=== PATIENT | female | born 1985 | race American Indian/Alaskan Native ===

== ENCOUNTER 2018-04-14 00:05 | Emergency (ER) | payer MEDICAID ==
[2018-04-14 04:26] VITALS: BP 120/80
== END 2018-04-14 00:06 | disposition left against medical advice (07) ==
LOC: ED 00:05
DX: N93.9 Abnormal uterine and vaginal bleeding, unspecified (principal); Z53.21 Procedure and treatment not carried out due to patient leaving prior to being seen by health care provider

== ENCOUNTER 2018-04-14 17:46 | Emergency (ER) | payer MEDICAID ==
[2018-04-14 17:53] VITALS: BP 114/71
--- NOTE | 2018-04-14 20:29 | Emergency Department Report ---
ED Female HPI - General Chief complaint: Vaginal Bleeding Stated complaint: IRREGULAR MENASTRATION Time Seen by Provider: 04/14/18 20:28 Source: patient Mode of arrival: Ambulatory Limitations: No Limitations - History of Present Illness Initial comments: This is a 32-year-old female nontoxic well in appearance with no signs of distress presented to the ER with intermittent vaginal bleeding 1 month. Patient stated that her [employer] removed her IUD and ever since then develops this vaginal bleeding. Patient stated that he has stopped yesterday when she came into the ED and left before being seen by a provider. Patient currently denies any vaginal bleeding. Patient denies any abdominal pain, chest pain, pelvic pain, shortness of breath, headache, stiff neck, numbness, tingling, fever or chills. Patient denies any allergies or significant past medical history. Patient denies any urinary symptoms or vaginal discharge. MD Complaint: vaginal bleeding -: month(s) (1) Severity scale (0 -10): 0 Improves with: none Worsens with: none Associated Symptoms: vaginal bleeding. denies: vaginal discharge, abdominal pain, nausea/vomiting, fever/chills, headaches, loss of appetite, dysuria, hematuria, rash, seizure, shortness of breath, syncope, weakness - Related Data Sexually active: No Allergies Allergy/AdvReac Type Severity Reaction Status Date / Time No Known Allergies Allergy Unverified 04/14/18 17:53 ED Review of Systems ROS: Stated complaint: IRREGULAR MENASTRATION Other details as noted in HPI Constitutional: denies: chills, fever Eyes: denies: eye pain, eye discharge, vision change ENT: denies: ear pain, throat pain Respiratory: denies: cough, shortness of breath, wheezing Cardiovascular: denies: chest pain, palpitations Endocrine: no symptoms reported Gastrointestinal: denies: abdominal pain, nausea, diarrhea Genitourinary: abnormal menses. denies: urgency, dysuria, discharge Musculoskeletal: denies: back pain, joint swelling, arthralgia Skin: denies: rash, lesions Neurological: denies: headache, weakness, paresthesias Psychiatric: denies: anxiety, depression Hematological/Lymphatic: denies: easy bleeding, easy bruising ED Past Medical Hx - Past Medical History Previous Medical History?: No - Surgical History Past Surgical History?: No - Social History Smoking Status: Never Smoker Substance Use Type: None ED Physical Exam - General Limitations: No Limitations General appearance: alert, in no apparent distress - Head Head exam: Present: atraumatic, normocephalic - Eye Eye exam: Present: normal appearance Pupils: Present: normal accommodation - ENT ENT exam: Present: normal exam, mucous membranes moist - Neck Neck exam: Present: normal inspection, full ROM. Absent: tenderness, meningismus, lymphadenopathy - Respiratory Respiratory exam: Present: normal lung sounds bilaterally. Absent: respiratory distress, wheezes, rales, rhonchi, stridor, chest wall tenderness, accessory muscle use, decreased breath sounds, prolonged expiratory - Cardiovascular Cardiovascular Exam: Present: regular rate, normal rhythm, normal heart sounds. Absent: bradycardia, tachycardia, irregular rhythm, systolic murmur, diastolic murmur, rubs, gallop - GI/Abdominal GI/Abdominal exam: Present: soft, normal bowel sounds. Absent: distended, tenderness, guarding, rebound, rigid, diminished bowel sounds - Extremities Exam Extremities exam: Present: normal inspection, full ROM, normal capillary refill - Back Exam Back exam: Present: normal inspection, full ROM - Neurological Exam Neurological exam: Present: alert, oriented X3, normal gait - Psychiatric Psychiatric exam: Present: normal affect, normal mood - Skin Skin exam: Present: warm, dry, intact, normal color. Absent: rash ED Course Vital Signs 04/14/18 17:51 Temperature 98.3 F Pulse Rate 86 Respiratory 16 Rate Blood Pressure 114/71 O2 Sat by Pulse 100 Oximetry - Reevaluation(s) Reevaluation #1: 04/14/18 21:11 Patient is speaking in full sentences with no signs of distress noted. ED Medical Decision Making - Lab Data Result diagrams: 04/14/18 20:44 04/14/18 20:50 - Medical Decision Making This is a 32-year-old female presents with abnormal menses. Patient is stable and was examined by me. Normal abdominal exam. US pelvic/transvaginal Oobtained and dictated by the radiologist. UA obtained. Patient notified of the US report with no questions noted by the patient. Labs unremarkable. Patient was referred to Follow-up with a BEHAVIOR CLINICIAN in 3-5 days or if symptoms worsen and continue return to emergency room as soon as possible. At time of discharge , the patient does not seem toxic or ill in appearance. No acute signs of distress noted. Patient agrees to discharge treatment plan of care. No further questions noted by the patient. Critical care attestation.: If time is entered above; I have spent that time in minutes in the direct care of this critically ill patient, excluding procedure time. ED Disposition Clinical Impression: Abnormal menses Fibroids Qualifiers: Uterine leiomyoma location: unspecified location Qualified Code(s): D25.9 - Leiomyoma of uterus, unspecified Disposition: TO HOME OR SELFCARE Is pt being admited?: No Does the pt Need Aspirin: No Condition: Stable Additional Instructions: Follow-up with a BEHAVIOR CLINICIAN doctor in 3-5 days or if symptoms worsen and continue return to emergency room as soon as possible. Referrals: PRIMARY CARE, [Primary Care Provider] - 3-5 Days BENJIE JOHNSON MD [Staff Physician] - 3-5 Days [facility] [Provider Group] - 3-5 Days [facility] [Outside] - 3-5 Days Forms: Work/School Release Form(ED)
[2018-04-14 20:59] LABS: Basophils % (Auto) 0.4 % (0.0-1.8); Eosinophils # (Auto) 0.1 K/mm3 (0.0-0.4); Hematocrit 38.5 % (30.3-42.9); Hemoglobin 13.1 gm/dl (10.1-14.3); Lymphocytes # (Auto) 2.3 K/mm3 (1.2-5.4); Lymphocytes % (Auto) 46.5 % (13.4-35.0); Mean Corpuscular HGB Conc 34 % (30-34); Mean Corpuscular Hemoglobin 31 pg (28-32); Mean Corpuscular Volume 91 fl (79-97); Monocytes # (Auto) 0.3 K/mm3 (0.0-0.8); Monocytes % (Auto) 6.8 % (0.0-7.3); Platelet Count 284 K/mm3 (140-440); Red Blood Count 4.24 M/mm3 (3.65-5.03); Red Cell Distribution Width 13.3 % (13.2-15.2)
[2018-04-14 21:04] LABS: Bilirubin,Urine NEG (Negative); Blood,Urine SM (Negative); Color,Urine Yellow (Yellow); Protein,Urine <15 mg/dL mg/dL (Negative); Urobilinogen,Urine < 2.0 mg/dL (<2.0)
[2018-04-14 21:11] LABS: BUN/Creatinine Ratio 20; Blood Urea Nitrogen 12 mg/dL (7-17); Hemolysis Index 3
--- NOTE | 2018-04-14 22:33 | Ultrasound Report ---
FINAL REPORT EXAM: US PELVIC COMPLETE and transvaginal ultrasound, non OB HISTORY: vaginal bleeding TECHNIQUE: Transabdominal and transvaginal grayscale and color-flow imaging of the pelvis was performed FINDINGS: Transabdominal: The uterus measures 6.9 centimeters x 4.7 centimeters by 5.7 centimeters. Endometrial thickness measures 4.1 millimeters. There is demonstration of a hypoechoic structure, probable fibroid, in the lower uterine segment that measures 4 centimeters x 3.5 centimeters x 3 centimeters. The right ovary measures 4 centimeters x 1.7 centimeters x 2.4 centimeters, is normal in appearance and contains follicles. Flow is demonstrated in the right ovary utilizing color flow imaging. The left ovary measures 3.4 centimeters x 2.4 centimeters x 2.6 centimeters, is normal in appearance and contains follicles. Transvaginal: The cervix is unremarkable in appearance. The uterus measures 8.7 centimeters x 5 centimeters by 5.1 centimeters. Endometrial thickness measures 5.9 millimeters. There is demonstration of a hypoechoic structure, probable fibroid in the posterior body that measures 3.7 centimeters x 2.6 centimeters x 2.5 centimeters. The right ovary measures 4.1 centimeters x 1.9 centimeters x 2.7 centimeters, is normal in appearance and contains follicles. Flow is demonstrated in the right ovary utilizing color flow imaging. The left ovary measures 3.9 centimeters x 2.5 centimeters x 2.9 centimeters is normal in appearance and contains follicles. Flow is demonstrated in the left ovary utilizing color flow imaging. No free fluid is demonstrated in the pelvis. IMPRESSION: 1. Fibroid appearance of the uterus. 2. Otherwise unremarkable study.
--- NOTE | 2018-04-14 22:35 | Ultrasound Report ---
FINAL REPORT EXAM: US TRANSVAGINAL and ultrasound pelvis, complete HISTORY: vaginal bleeding TECHNIQUE: Transabdominal and transvaginal grayscale and color-flow imaging of the pelvis was performed. FINDINGS: Transabdominal: The uterus measures 6.9 centimeters x 4.7 centimeters by 5.7 centimeters. Endometrial thickness measures 4.1 millimeters. There is demonstration of a hypoechoic structure, probable fibroid, in the lower uterine segment that measures 4 centimeters x 3.5 centimeters x 3 centimeters. The right ovary measures 4 centimeters x 1.7 centimeters x 2.4 centimeters, is normal in appearance and contains follicles. Flow is demonstrated in the right ovary utilizing color flow imaging. The left ovary measures 3.4 centimeters x 2.4 centimeters x 2.6 centimeters, is normal in appearance and contains follicles. Transvaginal: The cervix is unremarkable in appearance. The uterus measures 8.7 centimeters x 5 centimeters by 5.1 centimeters. Endometrial thickness measures 5.9 millimeters. There is demonstration of a hypoechoic structure, probable fibroid in the posterior body that measures 3.7 centimeters x 2.6 centimeters x 2.5 centimeters. The right ovary measures 4.1 centimeters x 1.9 centimeters x 2.7 centimeters, is normal in appearance and contains follicles. Flow is demonstrated in the right ovary utilizing color flow imaging. The left ovary measures 3.9 centimeters x 2.5 centimeters x 2.9 centimeters is normal in appearance and contains follicles. Flow is demonstrated in the left ovary utilizing color flow imaging. No free fluid is demonstrated in the pelvis. IMPRESSION: 1. Fibroid appearance of the uterus. 2. Otherwise unremarkable study.
== END 2018-04-14 22:40 | disposition home or self-care (01) ==
LOC: ED 17:46
DX: N94.89 Other specified conditions associated with female genital organs and menstrual cycle (principal); D25.9 Leiomyoma of uterus, unspecified
CPT/HCPCS: 36415; 76830; 76856; 80048; 81001; 84702; 85025